=== PATIENT | female | born 1955 | race Caucasian/White ===

== ENCOUNTER 2023-02-20 07:56 | Outpatient (CLI) | payer MEDICARE, SELFPAY ==
--- NOTE | 2023-02-20 09:51 | W.ANESCHARGE ---
Anesthesia Charges Start Date/Time Anesthesia Start Date: 02/20/23 Anesthesia Start Time: 09:13 Stop Date/Time Anesthesia Stop Date: 02/20/23 Anesthesia Stop Time: 09:45
--- NOTE | 2023-02-20 10:07 | W.ANESCHARGE ---
Anesthesia Charges Start Date/Time Anesthesia Start Date: 02/20/23 Anesthesia Start Time: 09:13 Stop Date/Time Anesthesia Stop Date: 02/20/23 Anesthesia Stop Time: 09:45
== END 2023-02-20 07:57 | disposition home or self-care (01) ==
LOC: OP CLINIC 07:57
PROVIDERS: PCP Family Medicine; Visit Provider Surgery
DX: Z12.11 Encounter for screening for malignant neoplasm of colon (principal); K64.8 Other hemorrhoids; Z86.010 Personal history of colon polyps
CPT/HCPCS: 00812; 45378; J2704

== ENCOUNTER 2024-01-01 13:19 | Outpatient (CLI) | payer MEDICARE, SELFPAY ==
--- NOTE | 2024-01-01 13:40 | CRLHL7_ITS ---
For Patients: As a result of the Cures Act, medical imaging exams and procedure reports are released immediately into your electronic medical record. You may view this report before your referring provider. If you have questions, please contact your health care provider. BILATERAL SCREENING MAMMOGRAM WITH COMPUTER-AIDED DETECTION AND TOMOSYNTHESIS TECHNIQUE: CC and MLO views were obtained. These mammographic images have been obtained using full-field digital technique. These mammographic images were interpreted with the benefit of computer-aided detection. Breast Tomosynthesis was used in this interpretation. COMPARISON FILM: 08/17/22, 05/11/21, 02/19/20. FINDINGS: There are scattered areas of fibroglandular density IMPRESSION: There is no radiographic evidence for malignancy. ASSESSMENT: BI-RADS Category 2: Benign RECOMMENDATION: Routine screening mammogram in 1 year. A lay language report of this examination will be provided to the patient. Yaron Londono M.D. Diagnostic Radiologist [email or web address] Transcribed: 3:27 [email or web address]/Dictated by: Yaron Londono MD @ 01/07/2024 11:22:00 AM (Electronically Signed)
== END 2024-01-01 13:20 | disposition home or self-care (01) ==
LOC: MAMMO 13:20
PROVIDERS: PCP Family Medicine; Visit Provider Family Medicine
DX: Z12.31 Encounter for screening mammogram for malignant neoplasm of breast (principal)
CPT/HCPCS: 77063; 77067

== ENCOUNTER 2024-01-07 07:46 | Outpatient (CLI) | payer MEDICARE, SELFPAY | END 2024-01-07 07:47 | disposition home or self-care (01) | LOC: NFLDREF 01-08 15:46 | PROVIDERS: PCP Family Medicine; Referring Provider Family Medicine; Visit Provider Family Medicine | DX: E55.9 Vitamin D deficiency, unspecified (principal); I10 Essential (primary) hypertension; E78.5 Hyperlipidemia, unspecified; M81.0 Age-related osteoporosis without current pathological fracture; Z13.9 Encounter for screening, unspecified | CPT/HCPCS: 80053; 80061; 82306 ==

== ENCOUNTER 2024-10-21 14:26 | Outpatient (CLI) | payer MEDICARE, SELFPAY | END 2024-10-21 14:27 | disposition home or self-care (01) | LOC: NFLDREF 15:49 | PROVIDERS: PCP Family Medicine; Visit Provider Family Medicine | DX: I10 Essential (primary) hypertension (principal); Z01.818 Encounter for other preprocedural examination | CPT/HCPCS: 80048 ==

== ENCOUNTER 2024-10-28 06:12 | Day surgery (SDC) | payer MEDICARE, SELFPAY ==
[2024-10-28] VITALS (14 sets, daily range): BP systolic 133–171; BP diastolic 58–107; PULSE 58–85; RESP 12–16; TEMP 36.1–36.7; O2SAT 93–100; BMI 44.3
[2024-10-28] MEDS: SODIUM CHLORIDE 0.9 % (FLUSH) 10 ML SYRINGE IVF (06:48)
[2024-10-28] MEDS: LACTATED RINGERS 1000 ML 1,000 ML 100 ML IV (06:48)
--- NOTE | 2024-10-28 07:08 | P.GSOP_ITS ---
Operative Note Date of procedure: 10/28/24 Pre-op diagnosis: 1. Enlarging right mid back mass. Post-op diagnosis: 1. Right mid back lipoma. Type of Procedure: 1. Excision of right mid back mass 10 x 12 cm with complex incisional closure 15 cm. Indications: 68-year-old female was seen in clinic for evaluation of right mid back mass. Patient initially was told that she had a mass 1 year ago. She was then seen by audioprosthologist for mole removal and Dermatology recommended excision of the mass. Patient was then referred to our clinic. Patient feels discomfort in the mass when she leans in the chair or when she is sitting in the car. She denies any redness. On clinical exam in the right mid back just lateral to the spine there was a subcutaneous mass measuring about 8 cm in largest dimension. This was soft to palpation and had limited mobility. This was suspicious for lipoma. Given patient's symptoms and the size of the mass, excision of this mass in the operating room was recommended. The procedure was discussed in detail. The risks associated procedure including infection, bleeding, and seroma were all discussed with the patient, and she agreed to proceed. Procedure Description: After discussing the risks and benefits of the procedure, the patient signed informed consent.? The operative site was marked and the patient was brought to the operating room. Patient was intubated by Anesthesia and placed on the operating table in prone position with all pressure points padded.??The operative site was then prepped and draped in the usual sterile fashion.? A time-out was then performed. Vertical elliptical skin incision was made with a scalpel over the palpable mass in the right mid back. Dermis was divided with cautery until the mass was identified. The mass was subcutaneous. The mass was then mobilized off subcutaneous fat with cautery the mass was overlying the muscle fascia but not tightly adherent to it. The mass was excised and measured 10 x 12 cm. It was sent to pathology. Subcutaneous flaps were then developed medially and laterally with cautery. Hemostasis was achieved with cautery and Vicryl stick tie. Fifteen round Deep drain was then placed through a separate skin incision created inferior lateral to the surgical incision. The drain was secured in place with 3-0 nylon. The vertical surgical incision was then reapproximated in multiple layers with interrupted 2-0 in 3-0 Vicryl sutures. The length of the incision was 15 cm. The skin of the incision was closed with a running 4-0 Monocryl stitch. Steri-Strips and sterile pressure dressings were placed over the incision and secured in place with tape. A drain sponge was placed under the drain. All counts were correct at the end of the case. ? The patient was then woken and transported to the recovery area in stable condition. ? The patient tolerated the procedure well. Findings: Large lipoma. Anesthesia: GETA Surgeon: Jasbir Aguilar MD Estimated blood loss (mL): 5 Additional Specimen Information: 1. Right mid back mass. Condition: stable Disposition: PACU
--- NOTE | 2024-10-28 07:08 | W.PM.H&PU ---
History & Physical Update History & Physical Update H&P Reviewed and patient assessed: No changes noted
[2024-10-28] MEDS: BUPIVACAINE 0.25% 30 ML INJECTION (08:11)
[2024-10-28] MEDS: LIDOCAINE 1%-EPI 1:100,000 20 ML INFILTRATI (08:11)
--- NOTE | 2024-10-28 08:39 | P.ANES_ITS ---
Anesthesia Charges Start Date/Time Anesthesia Start Date: 10/28/24 Anesthesia Start Time: 07:18 Stop Date/Time Anesthesia Stop Date: 10/28/24 Anesthesia Stop Time: 08:38 Coding CPT Codes CPT Codes: ANESTH HEAD/NECK/PTRUNK - 38945 ([id number]) P3 - PATIENT W/SEVERE SYS DISEASE, QK - VRT MECHANIC 2-4 CNCRNT ANES PROC, QX - HORTICULTURAL FARMWORKER SVC W/ MD MED DIRECTION
--- NOTE | 2024-10-28 08:39 | W.ANESCHARGE ---
Anesthesia Charges Start Date/Time Anesthesia Start Date: 10/28/24 Anesthesia Start Time: 07:18 Stop Date/Time Anesthesia Stop Date: 10/28/24 Anesthesia Stop Time: 08:38 Coding CPT Codes CPT Codes: ANESTH HEAD/NECK/PTRUNK - 55079 ([id number]) P3 - PATIENT W/SEVERE SYS DISEASE, QK - TECHNICAL WRITER AND EDITOR 2-4 CNCRNT ANES PROC, QX - SECURITY SHIFT SUPERVISOR SVC W/ MD MED DIRECTION
--- NOTE | 2024-10-28 08:42 | SUR.PHASEI ---
Patient arrived in PACU drowsy but following commands and answering questions with head shake. No pain, nausea and is warm enough at this time.
--- NOTE | 2024-10-28 08:58 | P.ANES_ITS ---
Anesthesia Charges Start Date/Time Anesthesia Start Date: 10/28/24 Anesthesia Start Time: 07:18 Stop Date/Time Anesthesia Stop Date: 10/28/24 Anesthesia Stop Time: 08:38 Coding CPT Codes CPT Codes: ANESTH HEAD/NECK/PTRUNK - 13198 ([id number]) QK - RETAIL MARKETING EXECUTIVE 2-4 CNCRNT ANES PROC, QX - AIR DUCT MECHANIC SVC W/ MD MED DIRECTION, P3 - PATIENT W/SEVERE SYS DISEASE
--- NOTE | 2024-10-28 08:58 | W.ANESCHARGE ---
Anesthesia Charges Start Date/Time Anesthesia Start Date: 10/28/24 Anesthesia Start Time: 07:18 Stop Date/Time Anesthesia Stop Date: 10/28/24 Anesthesia Stop Time: 08:38 Coding CPT Codes CPT Codes: ANESTH HEAD/NECK/PTRUNK - 52214 ([id number]) QK - FAMILY MEDICINE CHAIR 2-4 CNCRNT ANES PROC, QX - ACCOUNTS PAYABLE PAYROLL COORDINATOR SVC W/ MD MED DIRECTION, P3 - PATIENT W/SEVERE SYS DISEASE
--- NOTE | 2024-10-28 09:05 | SUR.PHASEI ---
Patient meets discharge criteria from PACU.
== END 2024-10-28 11:15 | disposition home or self-care (01) ==
PROVIDERS: PCP Family Medicine; Visit Provider Surgery
PROC: (CPT 21931; principal; 2024-10-28 07:30)
DX: D17.1 Benign lipomatous neoplasm of skin and subcutaneous tissue of trunk (principal)
CPT/HCPCS: 21931; 13101; 13102; 00300; 88304; 88377; J0330; J0665; J0690; J1100; J2250; J2405; J2704; J3010; J3490; J7120

== ENCOUNTER 2025-01-05 07:44 | Outpatient (CLI) | payer MEDICARE, SELFPAY | END 2025-01-05 07:45 | disposition home or self-care (01) | LOC: NFLDREF 01-07 09:09 | PROVIDERS: PCP Family Medicine; Referring Provider Family Medicine; Visit Provider Family Medicine | DX: I10 Essential (primary) hypertension (principal); E55.9 Vitamin D deficiency, unspecified; R73.01 Impaired fasting glucose; Z13.6 Encounter for screening for cardiovascular disorders | CPT/HCPCS: 80053; 80061; 82306 ==